=== PATIENT | female | born 1960 | race Caucasian/White ===

== ENCOUNTER 2018-09-30 08:57 | Outpatient (CLI) | payer BC, SELFPAY ==
[2018-09-30 10:27] LABS: Ferritin 99 ng/mL (8-388); TSH 3.06 uIU/mL (0.358-3.74)
== END 2018-09-30 09:17 ==
PROVIDERS: PCP Family Medicine; Visit Provider Internal Medicine Hematology & Oncology
DX: R53.83 Other fatigue (principal); D47.1 Chronic myeloproliferative disease; D50.9 Iron deficiency anemia, unspecified; I82.C11 Acute embolism and thrombosis of right internal jugular vein
CPT/HCPCS: 36415; 82728; 84443

== ENCOUNTER 2021-04-03 01:34 | Outpatient (CLI) | payer MEDICAID, SELFPAY ==
--- NOTE | 2021-04-03 | DI.US_ITS ---
Exam(s) US EXTREMITY VENOUS BI EXAM: US EXTREMITY VENOUS BI CLINICAL HISTORY: SWELLING OF LOWER EXTREMITIES, M79.89,HYPERCOAGULABLE STATE,ON ANTICOAGULAT. TECHNIQUE: Lower extremity venous ultrasound performed using grayscale, color-flow, and spectral Dop pler analysis. COMPARISON: No exams were available for comparison FINDINGS: The common femoral, femoral and popliteal veins demonstrate normal compressibility, augmentation, and color Doppler. The posterior tibial veins are patent. The saphenous vein appears free of thrombus. There is a Robins's cyst measuring 5.4 x 1.4 x 2.5 cm containing some debris. No Robins's cyst or arcenio calixto is seen on the right.. IMPRESSION: No evidence of DVT. Left Robins's cyst. DATA REPOSITORY:
== END 2021-04-03 01:54 ==
PROVIDERS: PCP Family Medicine; Visit Provider Internal Medicine Hematology & Oncology
DX: M71.22 Synovial cyst of popliteal space [Baker], left knee (principal); D68.59 Other primary thrombophilia; Z79.01 Long term (current) use of anticoagulants
CPT/HCPCS: 93970

== ENCOUNTER 2021-04-17 02:06 | Outpatient (CLI) | payer MEDICAID, SELFPAY ==
--- NOTE | 2021-04-17 | DI.US_ITS ---
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 FIBROID,? MALIGNANCY TECHNIQUE: Ultrasound performed using standard protocol. US US EXTREMITY VENOUS BI from 04/03/2021 FINDINGS: Pelvic ultrasound was performed transabdominally and transvaginally. Uterus measures 6.1 x 2.8 x 5.5 cm. Myometrium appears normal. Endometrial stripe is 1-2 millimeters in thickness and appears homo geneous. No focal myometrial mass identified. The ovaries are nonvisualized. Kidneys appear intact with no hydronephrosis or nephrolithiasis. No free fluid in the pelvis. IMPRESSION: Negative pelvic ultrasound. The ovaries were not identified. DATA REPOSITORY:
== END 2021-04-17 02:26 ==
PROVIDERS: PCP Family Medicine; Visit Provider Internal Medicine Hematology & Oncology
DX: D25.9 Leiomyoma of uterus, unspecified (principal)
CPT/HCPCS: 76830; 76856

== ENCOUNTER → 2023-05-08 01:04 | Outpatient (CLI) | payer MEDICAID, SELFPAY ==
--- NOTE | 2023-05-08 | DI.CT_ITS ---
Exam(s) CT ABDOMEN PELVIS W EXAM: CT ABDOMEN PELVIS W CLINICAL HISTORY: UPPER ABD PAIN,R10.10,PORTAL VEIN THROMBOSIS,FELL,? LACERATION, BLEED,CA. TECHNIQUE: Imaging Protocol: Axial computed tomography images with coronal and sagittal reformatted images were created and reviewed CONTRAST MATERIAL: Intravenous: Omnipaque-350 100cc Oral: Yes. Oral contrast was also administered for bowel opacification FINDINGS: VISUALIZED LUNG BASES: No nodules nor pleural effusions evident. ABDOMEN: There is a small amount perisplenic ascites. LIVER: There are no focal hepatic lesions evident. No dilated intrahepatic ducts. GALLBLADDER/BILIARY: There densities so seated with the gallbladder wall which are probably collatera l vessels. Cannot exclude intraluminal calculi in the gallbladder. Gallbladder does not appear jesse atous. PANCREAS: No evidence of pancreatic mass nor dilatation of the pancreatic duct. SPLEEN: Spleen is grossly enlarged, as was previously present. No evidence of splenic infarct. Nume karri collaterals-varices, including para esophageal varices. 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 numerous c ollaterals around the pancreatic head and uncinate process ADRENALS: There are no significant adrenal masses. KIDNEYS:Benign cyst is again noted in the inferior pole region of the left kidney measuring 1.8 x 1.7 cm, unchanged. Does not require further workup. No solid renal masses nor calculi. No hydronephro sis nor hydroureter. No solid renal masses. No calculi nor hydronephrosis.. ABDOMINAL AORTA: Abdominal aorta is not enlarged. LYMPH NODES:There is no retroperitoneal nor paraaortic adenopathy. ABDOMINAL WALL: No evidence of significant anterior abdominal wall nor inguinal hernia. GI: There is no evidence of bowel obstruction, free air, nor abscess. Subcutaneous streaking over the anterior abdominal wall probably related to injection sites. No drai nable abscess at these levels. PELVIS: GI: No evidence of appendicitis.No evidence of sigmoid diverticulitis. LYMPH NODES: There is no intrapelvic nor inguinal adenopathy. REPRODUCTIVE: Uterus and adnexal regions appear unremarkable. No adnexal masses nor free fluid in th e pelvis. URINARY BLADDER: No calculi nor obvious masses evident OSSEOUS: No fractures and no significant osseous lesions. IMPRESSION: 1. Compared to prior outside CT scan of March 2021 there is again noted prominent splenomegaly and occ lusion of the splenic and portal veins. There are numerous collaterals/varices including esophageal varices. 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 2. Densities in the gallbladder wall are most probably collateral vessels. Clinically indicated ultr asound could be performed to determine if there also calculi within the gallbladder lumen. Gallbladd er wall does not appear edematous. 3. There are numerous collaterals around the pancreas. There is no evidence of pancreatic mass nor d ilatation pancreatic duct. . 4. There is small amount of ascites around the spleen now evident. No generalized ascites. There is no anasarca. RADIATION DOSE DELIVERED: 1,370.09mGy.cm Total DLP DATA REPOSITORY: All CT scans at this facility are submitted to the National Radiology Data Registry (NRDR) Dose Index Registry (DIR) with the [employer] ([employer]). RADIATION OPTIMIZATION: All CT scans at this facility use at least one of these dose optimization te chniques: automated exposure control; mA and/or kV adjustment per patient size (includes targeted exa ms where dose is matched to clinical indication); or iterative reconstruction.
[2023-05-08] MEDS: Barium Sulfate 2% W/V-Berry Smoothie 450 ML BTL PO ×2 (10:41→10:42)
[2023-05-08] MEDS: Normal Saline - Diluent 50 ML VIAL IJ (13:32)
[2023-05-08] MEDS: Omnipaque 350 MG/ML 500 ML BTL-Imaging package 100 ML IJ (13:32)
== END ==
PROVIDERS: PCP Family Medicine; Visit Provider Internal Medicine Hematology & Oncology
DX: D47.1 Chronic myeloproliferative disease (principal); I81 Portal vein thrombosis; R10.10 Upper abdominal pain, unspecified
CPT/HCPCS: 74177